=== PATIENT | female | born 1955 | race African-American/Black ===

== ENCOUNTER → 2017-04-09 | Outpatient (CLI) | payer BC ==
--- NOTE | 2017-04-09 13:24 | RAD ---
APPROVED REPORT Test Type: Exercise Stress Nurse/Tech: Jennifer Crow R.N. Test Indications: CHEST PAIN Cardiac History: No known cardiac Medications: See Electronic Medical Record Medical History: See Electronic Medical Record Resting ECG: NSR Resting Heart Rate: 81 bpm Resting Blood Pressure: 145/80mmHg Pretest Chest Pain: No chest pain Nurse/Tech Notes S1S2, lungs sound clear Consent: The procedure was explained to the patient in lay terms. Informed consent was witnessed. Sumit eout was entered into [facility]. History and Stress Test performed by Jennifer Crow R.N. Stress Symptoms Dyspnea, chest pain Chest pain typical of angina occurred (Severity rated at 3 , about 1 min. min duration). POST EXERCISE Reason for Termination: Reached target heart rate Target HR: 136 Max HR: 149 bpm Exercise duration: 6 min. min:sec, 2 Stage Max Blood Pressure: 150/80mmHg Blood Pressure response to exercise: Normal blood pressure response during stress. Chest Pain: Yes. rated at 3 Arrhythmia: No. ST Change: No. INTERPRETATION Stress EKG Conclusion: No evidence of stress induced EKG changes. Imaging Protocol IMAGE PROTOCOL: Rest Tc-99m/stress Tc-99m 1 day Rest: Stress: Viability: Radiopharm.Tc99m [id number] Sestamibi Dose11.2mCi 35.3mCi Duration 15min. 10min. Img Date 04/09/2017 04/09/2017 Inj-Img [id number]. 75min. Rest Admin Site:IV - Right AntecubitalAdministrator:YAMILA Ch Stress Admin Site: IV - Right AntecubitalAdministrator: ELKE Bird, ARRT (R)(N) STRESS DATA End Diast. Vol.77.0mlAv. Heart Rate81.0bpm End Syst. Vol.13.0mlCO Index BSA0.0L/min Myocardial Hbum335.0gEject. Mohwcthm09.0% Stress Rates Pk. Fill Rate4.10EDV/secLVtime Pk. Fill 195.73msec Pk. Empty Rate4.78ESV/secLVtime Pk. Rfcdc412.86msec 1/3 Pk. Fill1.24EDV/sec Stress Scores Regional WT0.00Summed WT0.00 Regional WM0.00Summed WM0.00 The rest and stress images show normal perfusion, normal contraction and thickening. LV Perf. Quant 17 Seg. SSS0.00 17 Seg. SRS0.00 17 Seg. SDS0.00 Stress Defect Extent (% LAD)0.00Rest Defect Extent (% LAD)0.00Rev. Defect Extent (% LAD)0.00 Stress Defect Extent (% LCX) 0.00Rest Defect Extent (% LCX)0.00Rev. Defect Extent (% LCX)0.00 Stress Defect Extent (% RCA)0.00Rest Defect Extent (% RCA)0.00Rev. Defect Extent (% RCA)0.00 Stress Defect Extent (% PORFIRIO)0.00Rest Defect Extent (% PORFIRIO)0.00Rev. Defect Extent (% PORFIRIO)0.00 Other Information Quality:Good Risk Assessment: Low Risk Conclusion 1. Average exercise capacity with 7.0 Mets achieved. 2. Normal perfusion at stress/rest. 3. Normal EF at > 70% 4. Low risk study
== END | disposition home or self-care (01) ==
LOC: NM 07:49
PROVIDERS: ATTEND Internal Medicine Cardiovascular Disease
DX: I49.5 Sick sinus syndrome (principal); R07.9 Chest pain, unspecified
CPT/HCPCS: 78452; 93017; 96374; 96376; A9500